=== PATIENT | male | born 1980 | race Caucasian/White ===

== ENCOUNTER 2025-06-03 13:52 | Inpatient (IN) | payer OTHER ==
[~2025-06-03] VITALS: Ht 185.4 cm; Wt 91.4 kg
[2025-06-03] MEDS ORDERED: 0.9% SODIUM CHLORIDE 10 ML SYRINGE IVP PRN (15:30)
[2025-06-03] MEDS: CefTRIAXone 1 GM/DEXTROSE 50 ML IV ONE (16:23)
[2025-06-03 16:27] LABS: PLATELET COUNT (AUTO) 114 K/uL (150-450); RED BLOOD CELL COUNT(AUTO) 4.25 MIL/uL (4.50-5.90); RED CELL DISTRIBUTION WIDTH 14.4 % (11.5-14.5); WHITE BLOOD COUNT (AUTO) 12.9 K/uL (4.5-11.0)
[2025-06-03] MEDS: VANCOMYCIN 1.75GM/WATER(PEG) 350 ML IV ONE (16:28)
[2025-06-03] MEDS: SODIUM CHLORIDE 0.9% 2,450 ML IV ONE (16:28)
[2025-06-03 16:30] LABS: CALCIUM, TOTAL 8.7 mg/dL (8.8-10.5); CREATININE 0.77 mg/dL (0.60-1.30); GLOMERULAR FILTR. RATE CALC > 60 mL/min (>60); GLUCOSE,RANDOM 343 mg/dL (70-110); SODIUM SERUM 132 mmol/L (136-145); UREA NITROGEN, BLOOD 19 mg/dL (7-18)
[2025-06-03] MEDS ORDERED: ACETAMINOPHEN 325 MG TABLET PO PRN (16:30)
[2025-06-03] MEDS ORDERED: MAGNESIUM HYDROXIDE SUSPENSION 30 ML UDCUP PO PRN (16:30)
[2025-06-03] MEDS ORDERED: DEXTROSE 50%-WATER 25 GM/50 ML SYRINGE IVP PRN (16:30)
[2025-06-03] MEDS ORDERED: ONDANSETRON HCL 4 MG/2 ML VIAL IVP PRN (16:30)
[2025-06-03 16:37] LABS: ASPARTATE AMINOTRANSFERASE 39 U/L (15-37); CREATINE KINASE, TOTAL ONLY 103 U/L (39-308); TOTAL PROTEIN, SERUM 7.0 g/dL (6.4-8.2)
[2025-06-03 16:40] LABS: ERYTHROCYTE SEDIMENTATION RATE 67 MM/HR (0-15)
[2025-06-03 16:43] LABS: LACTIC ACID 2.8 mmol/L (0.4-2.0)
[2025-06-03 16:52] LABS: C-REACTIVE PROTEIN QUANT 30.24 mg/dL (0.00-0.30)
[2025-06-03] MEDS ORDERED: IOHEXOL 350 MG/ML 100 ML VIAL ONE (17:06)
[2025-06-03] MEDS ORDERED: SODIUM CHLORIDE 0.9% 100 ML ONE (17:06)
[2025-06-03] MEDS ORDERED: SULF-261 PO (17:19)
[2025-06-03] MEDS ORDERED: TRI2515C TP (17:19)
[2025-06-03] MEDS ORDERED: METF-81 PO (17:19)
[2025-06-03] MEDS ORDERED: CETI10TA77 PO (17:19)
[2025-06-03] MEDS ORDERED: MONT-35 PO (17:19)
[2025-06-03] MEDS ORDERED: INSREG SQ (17:19)
[2025-06-03] MEDS ORDERED: EMPA25TA3 PO (17:19)
[2025-06-03] MEDS ORDERED: FAMO20 PO (17:19)
[2025-06-03] MEDS ORDERED: ATOR40TA28 PO (17:19)
[2025-06-03] MEDS ORDERED: INSLAN SQ (17:19)
[2025-06-03] MEDS ORDERED: BUPR1FIL7 SL (17:19)
[2025-06-03] MEDS: SODIUM CHLORIDE 0.9% 1,000 ML IV ONE (18:01)
[2025-06-03 18:31] LABS: APPEARANCE,URINE CLEAR (CLEAR); GLUCOSE, URINE (UA) >=1000 mg/dL (NEGATIVE); LEUKOCYTE ESTERASE ,URINE NEGATIVE (NEGATIVE); NITRATE,URINE NEGATIVE (NEGATIVE); OCCULT BLOOD,URINE NEGATIVE (NEGATIVE); SPECIFIC GRAVITIY, URINE 1.041 (1.003-1.030)
[2025-06-03 18:38] LABS: ALCOHOL, URINE DRUG SCREEN NEGATIVE (NEGATIVE); AMPHET/METH SCREEN,URINE POSITIVE (NEGATIVE); BARBITURATE SCREEN, URINE NEGATIVE (NEGATIVE); CANNABINOID SCREEN,URINE POSITIVE (NEGATIVE); COCAINE SCREEN,URINE NEGATIVE (NEGATIVE); METHADONE SCREEN, URINE NEGATIVE (NEGATIVE)
[2025-06-03 19:13] LABS: PH,URINE DRUG SCREEN 5.5 (5.0-8.0)
[2025-06-03] MEDS: OxyCODONE HCL/ACETAMINOPHEN 5-325 MG TABLET PO PRN ×2 (19:58→23:10)
[2025-06-03] MEDS: DOCUSATE SODIUM 100 MG CAPSULE PO SCH (21:00)
[2025-06-03] MEDS: INSULIN LISPRO 100 UNITS/ML SQ PRN (22:07)
[2025-06-03 23:08] VITALS: BP 170/100; PULSE 114; RESP 20; TEMP 97.5; O2SAT 98
[2025-06-04] MEDS: PIPERACILLIN/TAZO 3.375 GM/D5W 50 ML IV SCH (00:10)
[2025-06-04 00:12] VITALS: BP 159/84; PULSE 100; RESP 20; O2SAT 96
[2025-06-04] MEDS: VANCOMYCIN 1.25 GM/WATER(PEG) 250 ML IV SCH (01:14)
[2025-06-04 04:15] VITALS: BP 142/82; PULSE 93; RESP 20; TEMP 97.6; O2SAT 98
[2025-06-04 06:31] LABS: GLUCOMETER DEV NAME(LOC) 4E.2; GLUCOSE,POINT OF CARE 288 MG/DL (70-110)
[2025-06-04 07:57] LABS: CALCIUM, TOTAL 8.3 mg/dL (8.8-10.5); CREATININE 0.57 mg/dL (0.60-1.30); GLOMERULAR FILTR. RATE CALC > 60 mL/min (>60); GLUCOSE,RANDOM 314 mg/dL (70-110); SODIUM SERUM 133 mmol/L (136-145); UREA NITROGEN, BLOOD 11 mg/dL (7-18)
[2025-06-04 08:00] VITALS: BP 131/86; PULSE 91; RESP 19; TEMP 98.2; O2SAT 100
[2025-06-04] MEDS: FAMOTIDINE 20 MG TABLET PO SCH (08:26)
[2025-06-04] MEDS: INSULIN GLARGINE,HUM.REC.ANLOG 100 UNITS/ML SQ SCH (08:38)
[2025-06-04 18:01] LABS: GLUCOMETER DEV NAME(LOC) 4E.2; GLUCOSE,POINT OF CARE 338 MG/DL (70-110)
[2025-06-04 18:01] LABS: GLUCOMETER DEV NAME(LOC) 4E.2; GLUCOSE,POINT OF CARE 330 MG/DL (70-110)
[2025-06-04 20:27] VITALS: BP 151/80; PULSE 105; RESP 18; TEMP 100.8; O2SAT 95
[2025-06-04 20:35] LABS: GLUCOMETER DEV NAME(LOC) 6S.2; GLUCOSE,POINT OF CARE 311 MG/DL (70-110)
[2025-06-04] MEDS: KETOROLAC TROMETHAMINE 30 MG/ML VIAL IVP ONE (21:56)
[2025-06-05 00:02] LABS: GLUCOMETER DEV NAME(LOC) 6S.2; GLUCOSE,POINT OF CARE 316 MG/DL (70-110)
[2025-06-05 00:23] VITALS: BP 134/77; PULSE 97; RESP 18; TEMP 98.8; O2SAT 97
[2025-06-05 06:31] VITALS: BP 139/79; PULSE 83; RESP 18; TEMP 98.2; O2SAT 97
[2025-06-05 06:35] LABS: GLUCOMETER DEV NAME(LOC) 6S.2; GLUCOSE,POINT OF CARE 243 MG/DL (70-110)
[2025-06-05 07:46] VITALS: BP 150/84; PULSE 90; RESP 18; TEMP 99; O2SAT 100
[2025-06-05 12:00] LABS: GLUCOMETER DEV NAME(LOC) 4E.2; GLUCOSE,POINT OF CARE 215 MG/DL (70-110)
[2025-06-05] MEDS: SODIUM CHLORIDE 0.45% 1,000 ML IV SCH (12:52)
[2025-06-05 16:26] VITALS: BP 154/91; PULSE 75; RESP 18; TEMP 98.3; O2SAT 100
[2025-06-05 19:39] VITALS: BP 156/85; PULSE 90; RESP 18; TEMP 99.9; O2SAT 95
[2025-06-05 20:11] LABS: GLUCOMETER DEV NAME(LOC) 6S.2; GLUCOSE,POINT OF CARE 211 MG/DL (70-110)
[2025-06-05 20:11] LABS: GLUCOMETER DEV NAME(LOC) 4E.2; GLUCOSE,POINT OF CARE 308 MG/DL (70-110)
[2025-06-05 20:11] LABS: GLUCOMETER DEV NAME(LOC) 6S.2; GLUCOSE,POINT OF CARE 196 MG/DL (70-110)
[2025-06-05 20:11] LABS: GLUCOMETER DEV NAME(LOC) 6S.2; GLUCOSE,POINT OF CARE 276 MG/DL (70-110)
[2025-06-06 05:11] VITALS: BP 142/85; PULSE 89; RESP 18; TEMP 99.3; O2SAT 94
[2025-06-06 07:45] LABS: GLUCOMETER DEV NAME(LOC) 4E.2; GLUCOSE,POINT OF CARE 345 MG/DL (70-110)
[2025-06-06 08:51] VITALS: BP 138/74; PULSE 88; RESP 20; TEMP 98.6; O2SAT 94
[2025-06-06 11:54] LABS: CALCIUM, TOTAL 7.3 mg/dL (8.8-10.5); CREATININE 0.71 mg/dL (0.60-1.30); GLOMERULAR FILTR. RATE CALC > 60 mL/min (>60); GLUCOSE,RANDOM 291 mg/dL (70-110); SODIUM SERUM 131 mmol/L (136-145); UREA NITROGEN, BLOOD 9 mg/dL (7-18)
[2025-06-06 17:12] VITALS: BP 135/91; PULSE 81; RESP 18; TEMP 97.7; O2SAT 95
[2025-06-06 19:31] VITALS: BP 141/89; PULSE 86; RESP 18; TEMP 99.5; O2SAT 94
[2025-06-06 19:56] LABS: GLUCOMETER DEV NAME(LOC) 4E.2; GLUCOSE,POINT OF CARE 290 MG/DL (70-110)
[2025-06-06 19:56] LABS: GLUCOMETER DEV NAME(LOC) 4E.2; GLUCOSE,POINT OF CARE 351 MG/DL (70-110)
[2025-06-06 19:56] LABS: GLUCOMETER DEV NAME(LOC) 4E.2; GLUCOSE,POINT OF CARE 288 MG/DL (70-110)
[2025-06-06] MEDS: ZOLPIDEM TARTRATE 5 MG TABLET PO PRN (21:20)
[2025-06-06 22:11] LABS: GLUCOMETER DEV NAME(LOC) 4E.2; GLUCOSE,POINT OF CARE 285 MG/DL (70-110)
[2025-06-07 04:27] VITALS: BP 146/85; PULSE 97; RESP 18; TEMP 100.3; O2SAT 95
[2025-06-07 08:41] VITALS: BP 146/86; PULSE 94; RESP 18; TEMP 98.4; O2SAT 95
[2025-06-07] MEDS: INSULIN GLARGINE,HUM.REC.ANLOG 100 UNITS/ML SQ SCH (09:19)
[2025-06-07 12:00] LABS: GLUCOMETER DEV NAME(LOC) 6S.2; GLUCOSE,POINT OF CARE 306 MG/DL (70-110)
[2025-06-07 12:01] LABS: GLUCOMETER DEV NAME(LOC) 6S.2; GLUCOSE,POINT OF CARE 322 MG/DL (70-110)
[2025-06-07 12:11] LABS: GLUCOMETER DEV NAME(LOC) 4E.2; GLUCOSE,POINT OF CARE 232 MG/DL (70-110)
[2025-06-07 13:58] LABS: PLATELET COUNT (AUTO) 129 K/uL (150-450); RED BLOOD CELL COUNT(AUTO) 3.94 MIL/uL (4.50-5.90); RED CELL DISTRIBUTION WIDTH 15.0 % (11.5-14.5); WHITE BLOOD COUNT (AUTO) 14.7 K/uL (4.5-11.0)
[2025-06-07 14:26] LABS: CALCIUM, TOTAL 7.7 mg/dL (8.8-10.5); CREATININE 0.50 mg/dL (0.60-1.30); GLOMERULAR FILTR. RATE CALC > 60 mL/min (>60); GLUCOSE,RANDOM 344 mg/dL (70-110); SODIUM SERUM 128 mmol/L (136-145); UREA NITROGEN, BLOOD 10 mg/dL (7-18)
[2025-06-07 18:41] LABS: GLUCOMETER DEV NAME(LOC) 6S.2; GLUCOSE,POINT OF CARE 309 MG/DL (70-110)
[2025-06-07 20:56] LABS: GLUCOMETER DEV NAME(LOC) 4E.2; GLUCOSE,POINT OF CARE 326 MG/DL (70-110)
[2025-06-07 20:58] VITALS: BP 153/93; PULSE 93; RESP 17; TEMP 99.1; O2SAT 95
[2025-06-07] MEDS ORDERED: SODIUM CHLORIDE 0.9% 250 ML IV ONE (21:21)
[2025-06-07] MEDS: VANCOMYCIN 1.75GM/WATER(PEG) 350 ML IV SCH (23:46)
[2025-06-08 04:50] VITALS: BP 156/91; PULSE 95; RESP 18; TEMP 100.8; O2SAT 95
[2025-06-08] MEDS ORDERED: RINGERS SOLUTION,LACTATED 1,000 ML IV ONE (05:54)
[2025-06-08 08:00] VITALS: BP 139/79; PULSE 91; RESP 18; TEMP 99.7; O2SAT 99
[2025-06-08 11:55] LABS: GLUCOMETER DEV NAME(LOC) 6S.2; GLUCOSE,POINT OF CARE 283 MG/DL (70-110)
[2025-06-08 11:55] LABS: GLUCOMETER DEV NAME(LOC) 6S.2; GLUCOSE,POINT OF CARE 249 MG/DL (70-110)
[2025-06-08] MEDS ORDERED: FentaNYL CITRATE PF 100 MCG/2 ML VIAL ONE (12:00)
[2025-06-08] MEDS ORDERED: MIDAZOLAM HCL 2 MG/2 ML VIAL ONE (12:00)
[2025-06-08] MEDS ORDERED: BACITRACIN 28 GM OINTMENT TP ONE (12:15)
[2025-06-08] MEDS ORDERED: MUPIROCIN CALCIUM 2% 22 GM OINTMENT ONE (12:17)
[2025-06-08] MEDS: ETHYL ALCOHOL 62% ANTISEPTIC NASAL SANITIZER 0.6 ML AMPUL NASAL ONE (12:34)
[2025-06-08] MEDS: CHLORHEXIDINE GLUCONATE 2% TOWELETTE [2'S/6'S] TP ONE (12:35)
[2025-06-08] MEDS: RINGERS SOLUTION,LACTATED 1,000 ML IV ONE (12:37)
[2025-06-08] MEDS ORDERED: BUPIVACAINE HCL/PF 0.25% 30 ML VIAL ONE (12:54)
[2025-06-08 12:55] LABS: GLUCOMETER DEV NAME(LOC) SDS.; GLUCOSE,POINT OF CARE 215 MG/DL (70-110)
[2025-06-08] MEDS ORDERED: BUPIVACAINE LIPOSOME/PF 1.3%-13.3MG/ML SUSP 20 ML VIAL INJ ONE (13:00)
[2025-06-08] MEDS ORDERED: FentaNYL CITRATE PF 100 MCG/2 ML VIAL IV ONE (13:32)
[2025-06-08] MEDS ORDERED: MIDAZOLAM HCL 2 MG/2 ML VIAL IVP ONE (13:32)
[2025-06-08 13:56] LABS: GLUCOMETER DEV NAME(LOC) 4E.2; GLUCOSE,POINT OF CARE 218 MG/DL (70-110)
[2025-06-08 17:10] VITALS: BP 176/94; PULSE 70; RESP 20; TEMP 97.5; O2SAT 99
[2025-06-08 17:50] VITALS: BP 185/93; PULSE 75; RESP 20; TEMP 97.7; O2SAT 98
[2025-06-08 21:00] VITALS: BP 159/91; PULSE 73; RESP 20; TEMP 97.5; O2SAT 98
[2025-06-08 23:11] LABS: GLUCOMETER DEV NAME(LOC) 6S.2; GLUCOSE,POINT OF CARE 371 MG/DL (70-110)
[2025-06-08 23:11] LABS: GLUCOMETER DEV NAME(LOC) 6S.2; GLUCOSE,POINT OF CARE 96 MG/DL (70-110)
[2025-06-09 04:00] VITALS: BP 164/93; PULSE 70; RESP 20; TEMP 97.7; O2SAT 99
[2025-06-09] MEDS ORDERED: SODIUM CHLORIDE 0.9% 500 ML IV ONE (05:45)
[2025-06-09 05:46] LABS: GLUCOMETER DEV NAME(LOC) 4E.2; GLUCOSE,POINT OF CARE 361 MG/DL (70-110)
[2025-06-09 06:33] LABS: CALCIUM, TOTAL 8.5 mg/dL (8.8-10.5); CREATININE 0.51 mg/dL (0.60-1.30); GLOMERULAR FILTR. RATE CALC > 60 mL/min (>60); GLUCOSE,RANDOM 392 mg/dL (70-110); SODIUM SERUM 127 mmol/L (136-145); UREA NITROGEN, BLOOD 17 mg/dL (7-18)
[2025-06-09 09:21] VITALS: BP 133/92; PULSE 77; RESP 18; TEMP 97.6; O2SAT 96
[2025-06-09] MEDS ORDERED: ROCURONIUM BROMIDE 10 MG/ML 5 ML VIAL IVP ONE (12:14)
[2025-06-09] MEDS ORDERED: METOCLOPRAMIDE HCL 5 MG/ML 2 ML VIAL IVP ONE (12:14)
[2025-06-09] MEDS ORDERED: DEXAMETHASONE SOD PHOS 4 MG/ML VIAL IVP ONE (12:14)
[2025-06-09] MEDS ORDERED: PROPOFOL 1% ISO-OSM 1000 MG/100 ML BOTTLE IV ONE (12:14)
[2025-06-09] MEDS ORDERED: SUGAMMADEX SODIUM 200 MG/2 ML VIAL IVP ONE (12:14)
[2025-06-09] MEDS ORDERED: ONDANSETRON HCL 4 MG/2 ML VIAL IVP ONE (12:14)
[2025-06-09] MEDS ORDERED: LIDOCAINE/PF 2% 5 ML VIAL IM ONE (12:14)
[2025-06-09] MEDS ORDERED: PROPOFOL 1% 20 ML VIAL IVP ONE (12:14)
[2025-06-09] MEDS: BUPRENORPHINE HCL/NALOXONE HCL 8-2 MG SUBLINGUAL TABLET SL SCH (13:43)
[2025-06-09] MEDS: BUPRENORPHINE HCL/NALOXONE HCL 2-0.5 MG SUBLINGUAL TABLET SL SCH (13:44)
[2025-06-09] MEDS: INSULIN GLARGINE,HUM.REC.ANLOG 100 UNITS/ML SQ ONE (13:45)
[2025-06-09] MEDS: INSULIN LISPRO 100 UNITS/ML SQ PRN (13:51)
[2025-06-09 20:00] VITALS: BP 145/89; PULSE 77; RESP 18; TEMP 97.7; O2SAT 96
[2025-06-09] MEDS: INSULIN GLARGINE,HUM.REC.ANLOG 100 UNITS/ML SQ SCH (21:29)
[2025-06-10 01:01] LABS: GLUCOMETER DEV NAME(LOC) 6S.2; GLUCOSE,POINT OF CARE 462 MG/DL (70-110)
[2025-06-10 01:01] LABS: GLUCOMETER DEV NAME(LOC) 4E.2; GLUCOSE,POINT OF CARE 394 MG/DL (70-110)
[2025-06-10 01:01] LABS: GLUCOMETER DEV NAME(LOC) 4E.2; GLUCOSE,POINT OF CARE 407 MG/DL (70-110)
[2025-06-10 04:00] VITALS: BP 127/78; PULSE 65; RESP 18; TEMP 97.9; O2SAT 97
[2025-06-10] MEDS: INSULIN GLARGINE,HUM.REC.ANLOG 100 UNITS/ML SQ SCH (08:48)
[2025-06-10 10:06] LABS: GLUCOMETER DEV NAME(LOC) 4E.2; GLUCOSE,POINT OF CARE 389 MG/DL (70-110)
[2025-06-10 12:01] LABS: GLUCOMETER DEV NAME(LOC) 6S.2; GLUCOSE,POINT OF CARE 351 MG/DL (70-110)
[2025-06-10 20:36] VITALS: BP 129/80; PULSE 71; RESP 18; TEMP 97.9; O2SAT 95
[2025-06-11 02:41] LABS: GLUCOMETER DEV NAME(LOC) 4E.2; GLUCOSE,POINT OF CARE 349 MG/DL (70-110)
[2025-06-11 02:41] LABS: GLUCOMETER DEV NAME(LOC) 4E.2; GLUCOSE,POINT OF CARE 275 MG/DL (70-110)
[2025-06-11 04:23] VITALS: BP 130/78; PULSE 77; RESP 18; TEMP 98.2; O2SAT 96
[2025-06-11 08:00] VITALS: BP 122/87; PULSE 88; RESP 19; TEMP 98.1; O2SAT 95
[2025-06-11 08:00] LABS: CALCIUM, TOTAL 7.9 mg/dL (8.8-10.5); CREATININE 0.68 mg/dL (0.60-1.30); GLOMERULAR FILTR. RATE CALC > 60 mL/min (>60); GLUCOSE,RANDOM 255 mg/dL (70-110); SODIUM SERUM 133 mmol/L (136-145); UREA NITROGEN, BLOOD 17 mg/dL (7-18)
[2025-06-11] MEDS ORDERED: RINGERS SOLUTION,LACTATED 1,000 ML IV ONE ×2 (09:00→14:54)
[2025-06-11] MEDS: CHLORHEXIDINE GLUCONATE 2% TOWELETTE [2'S/6'S] TP ONE (10:10)
[2025-06-11] MEDS: ETHYL ALCOHOL 62% ANTISEPTIC NASAL SANITIZER 0.6 ML AMPUL NASAL ONE (10:10)
[2025-06-11] MEDS ORDERED: MIDAZOLAM HCL 2 MG/2 ML VIAL ONE (12:00)
[2025-06-11] MEDS ORDERED: FentaNYL CITRATE PF 100 MCG/2 ML VIAL ONE (12:00)
[2025-06-11 12:06] LABS: GLUCOMETER DEV NAME(LOC) 4E.2; GLUCOSE,POINT OF CARE 275 MG/DL (70-110)
[2025-06-11 12:06] LABS: GLUCOMETER DEV NAME(LOC) 4E.2; GLUCOSE,POINT OF CARE 141 MG/DL (70-110)
[2025-06-11] MEDS: RINGERS SOLUTION,LACTATED 1,000 ML IV ONE (12:18)
[2025-06-11] MEDS ORDERED: BUPIVACAINE HCL/PF 0.25% 30 ML VIAL ONE (12:32)
[2025-06-11] MEDS ORDERED: MIDAZOLAM HCL 2 MG/2 ML VIAL IVP ONE (13:46)
[2025-06-11] MEDS ORDERED: FentaNYL CITRATE PF 100 MCG/2 ML VIAL IM ONE (13:46)
[2025-06-11] MEDS ORDERED: SODIUM CHLORIDE 0.9% 10 ML ONE (14:29)
[2025-06-11] MEDS ORDERED: SODIUM CHLORIDE 0.9% 50 ML ONE (14:30)
[2025-06-11] MEDS: BUPIVACAINE LIPOSOME/PF 1.3%-13.3MG/ML SUSP 20 ML VIAL INJ ONE (15:00)
[2025-06-11 16:30] VITALS: BP 139/87; PULSE 97; RESP 20; TEMP 97.9; O2SAT 95
[2025-06-11 16:45] LABS: GLUCOMETER DEV NAME(LOC) 4E.2; GLUCOSE,POINT OF CARE 147 MG/DL (70-110)
[2025-06-11] MEDS: VANCOMYCIN 1.5 GM/WATER(PEG) 300 ML IV SCH (16:47)
[2025-06-11] MEDS ORDERED: METOCLOPRAMIDE HCL 5 MG/ML 2 ML VIAL ONE (17:58)
[2025-06-11] MEDS ORDERED: ROCURONIUM BROMIDE 10 MG/ML 5 ML VIAL ONE (17:58)
[2025-06-11] MEDS ORDERED: SUCCINYLCHOLINE CHLORIDE 20 MG/ML 10 ML VIAL ONE (17:58)
[2025-06-11] MEDS ORDERED: ONDANSETRON HCL 4 MG/2 ML VIAL ONE (17:58)
[2025-06-11 21:06] VITALS: BP 140/85; PULSE 103; RESP 18; TEMP 98.6; O2SAT 96
[2025-06-12 02:36] LABS: GLUCOMETER DEV NAME(LOC) 4E.2; GLUCOSE,POINT OF CARE 348 MG/DL (70-110)
[2025-06-12 06:01] VITALS: BP 121/80; PULSE 88; RESP 20; TEMP 97.9; O2SAT 96
[2025-06-12 06:13] LABS: CALCIUM, TOTAL 8.1 mg/dL (8.8-10.5); CREATININE 0.57 mg/dL (0.60-1.30); GLOMERULAR FILTR. RATE CALC > 60 mL/min (>60); GLUCOSE,RANDOM 269 mg/dL (70-110); SODIUM SERUM 130 mmol/L (136-145); UREA NITROGEN, BLOOD 14 mg/dL (7-18)
[2025-06-12 08:32] VITALS: BP 107/61; PULSE 96; RESP 18; TEMP 98.1; O2SAT 97
[2025-06-12] MEDS: INSULIN LISPRO 100 UNITS/ML SQ SCH (11:35)
[2025-06-12] MEDS: MetFORMIN HCL 500 MG ER TABLET PO SCH (18:42)
[2025-06-12 20:00] VITALS: BP 131/79; PULSE 91; RESP 20; TEMP 98.4; O2SAT 96
[2025-06-12] MEDS: ATORVASTATIN CALCIUM 40 MG TABLET PO SCH (20:54)
[2025-06-13 03:24] VITALS: BP 110/68; PULSE 93; RESP 18; TEMP 98.4; O2SAT 96
[2025-06-13] MEDS: CETIRIZINE HCL 10 MG TABLET PO SCH (07:37)
[2025-06-13] MEDS: EMPAGLIFLOZIN 25 MG TABLET PO SCH (07:38)
[2025-06-13] MEDS: MONTELUKAST SODIUM 10 MG TABLET PO SCH (07:40)
[2025-06-13] MEDS: FAMOTIDINE 20 MG TABLET PO SCH (07:50)
[2025-06-13 08:09] LABS: CALCIUM, TOTAL 7.9 mg/dL (8.8-10.5); CREATININE 0.45 mg/dL (0.60-1.30); GLOMERULAR FILTR. RATE CALC > 60 mL/min (>60); GLUCOSE,RANDOM 199 mg/dL (70-110); SODIUM SERUM 133 mmol/L (136-145); UREA NITROGEN, BLOOD 13 mg/dL (7-18)
[2025-06-13] MEDS: INSULIN GLARGINE,HUM.REC.ANLOG 100 UNITS/ML SQ SCH (08:51)
[2025-06-13 08:56] VITALS: BP 111/66; PULSE 93; RESP 18; TEMP 98.2; O2SAT 96
[2025-06-13] MEDS ORDERED: CALC625T66 PO (10:37)
[2025-06-13] MEDS ORDERED: HYDR-4808 PO (10:37)
[2025-06-13] MEDS ORDERED: IBUP-1506 PO (10:37)
[2025-06-13] MEDS ORDERED: LANO113C6 TP (10:37)
[2025-06-13] MEDS ORDERED: DEXT2TAB3 PO (10:37)
[2025-06-13 14:20] LABS: ASPARTATE AMINOTRANSFERASE 57.0 U/L (15-37); TOTAL PROTEIN, SERUM 6.5 g/dL (6.4-8.2)
[2025-06-13 16:09] LABS: PLATELET COUNT (AUTO) 368 K/uL (150-450); RED BLOOD CELL COUNT(AUTO) 3.37 MIL/uL (4.50-5.90); RED CELL DISTRIBUTION WIDTH 15.8 % (11.5-14.5); WHITE BLOOD COUNT (AUTO) 10.9 K/uL (4.5-11.0)
[2025-06-13 17:50] LABS: GLUCOMETER DEV NAME(LOC) 6S.2; GLUCOSE,POINT OF CARE 195 MG/DL (70-110)
[2025-06-13 17:50] LABS: GLUCOMETER DEV NAME(LOC) 6S.2; GLUCOSE,POINT OF CARE 210 MG/DL (70-110)
[2025-06-13 19:45] LABS: GLUCOMETER DEV NAME(LOC) 4E.2; GLUCOSE,POINT OF CARE 269 MG/DL (70-110)
[2025-06-13 19:46] LABS: GLUCOMETER DEV NAME(LOC) 4E.2; GLUCOSE,POINT OF CARE 308 MG/DL (70-110)
[2025-06-13 19:46] LABS: GLUCOMETER DEV NAME(LOC) 4E.2; GLUCOSE,POINT OF CARE 201 MG/DL (70-110)
[2025-06-13 19:46] LABS: GLUCOMETER DEV NAME(LOC) 6S.2; GLUCOSE,POINT OF CARE 136 MG/DL (70-110)
[2025-06-13 19:46] LABS: GLUCOMETER DEV NAME(LOC) 4E.2; GLUCOSE,POINT OF CARE 124 MG/DL (70-110)
[2025-06-13 20:07] VITALS: BP 133/84; PULSE 89; RESP 20; TEMP 98.1; O2SAT 96
[2025-06-14 04:00] VITALS: BP 106/65; PULSE 92; RESP 18; TEMP 98.1; O2SAT 95
[2025-06-14 07:14] LABS: CALCIUM, TOTAL 8.2 mg/dL (8.8-10.5); CREATININE 0.66 mg/dL (0.60-1.30); GLOMERULAR FILTR. RATE CALC > 60 mL/min (>60); GLUCOSE,RANDOM 143 mg/dL (70-110); SODIUM SERUM 136 mmol/L (136-145); UREA NITROGEN, BLOOD 15 mg/dL (7-18)
[2025-06-14] MEDS ORDERED: SODIUM CHLORIDE 0.9% 250 ML IV ONE (08:37)
[2025-06-14 08:51] LABS: GLUCOMETER DEV NAME(LOC) 4E.2; GLUCOSE,POINT OF CARE 127 MG/DL (70-110)
[2025-06-14 08:51] LABS: GLUCOMETER DEV NAME(LOC) 6S.2; GLUCOSE,POINT OF CARE 158 MG/DL (70-110)
[2025-06-14 09:14] VITALS: BP 112/64; PULSE 80; RESP 18; TEMP 98.1; O2SAT 100
[2025-06-14 13:51] LABS: GLUCOMETER DEV NAME(LOC) 4E.2; GLUCOSE,POINT OF CARE 116 MG/DL (70-110)
[2025-06-14] MEDS: VANCOMYCIN 1GM/WATER(PEG/NADA) 200 ML IV SCH (15:40)
[2025-06-14 20:00] VITALS: BP 116/72; PULSE 85; RESP 18; TEMP 98.2; O2SAT 97
[2025-06-14 21:50] LABS: GLUCOMETER DEV NAME(LOC) 6S.2; GLUCOSE,POINT OF CARE 132 MG/DL (70-110)
[2025-06-15 04:00] VITALS: BP 109/64; PULSE 73; RESP 18; TEMP 98.1; O2SAT 97
[2025-06-15 06:30] LABS: GLUCOMETER DEV NAME(LOC) 6S.2; GLUCOSE,POINT OF CARE 138 MG/DL (70-110)
[2025-06-15 06:38] LABS: CALCIUM, TOTAL 8.2 mg/dL (8.8-10.5); CREATININE 0.54 mg/dL (0.60-1.30); GLOMERULAR FILTR. RATE CALC > 60 mL/min (>60); GLUCOSE,RANDOM 143 mg/dL (70-110); SODIUM SERUM 137 mmol/L (136-145); UREA NITROGEN, BLOOD 15 mg/dL (7-18)
[2025-06-15 07:30] LABS: GLUCOMETER DEV NAME(LOC) 4E.2; GLUCOSE,POINT OF CARE 98 MG/DL (70-110)
[2025-06-15 08:42] VITALS: BP 116/63; PULSE 88; RESP 18; TEMP 98.2; O2SAT 96
[2025-06-15 10:38] LABS: PLATELET COUNT (AUTO) 371 K/uL (150-450); RED BLOOD CELL COUNT(AUTO) 3.47 MIL/uL (4.50-5.90); RED CELL DISTRIBUTION WIDTH 16.0 % (11.5-14.5); WHITE BLOOD COUNT (AUTO) 6.0 K/uL (4.5-11.0)
[2025-06-15 12:20] LABS: GLUCOMETER DEV NAME(LOC) 6S.2; GLUCOSE,POINT OF CARE 144 MG/DL (70-110)
[2025-06-15 20:00] VITALS: BP 112/72; PULSE 94; RESP 18; TEMP 98.2; O2SAT 98
[2025-06-15 21:16] LABS: GLUCOMETER DEV NAME(LOC) 4E.2; GLUCOSE,POINT OF CARE 113 MG/DL (70-110)
[2025-06-15 21:26] LABS: GLUCOMETER DEV NAME(LOC) 6S.2; GLUCOSE,POINT OF CARE 130 MG/DL (70-110)
[2025-06-16 04:00] VITALS: BP 102/63; PULSE 74; RESP 18; TEMP 98.2; O2SAT 97
[2025-06-16 05:41] LABS: GLUCOMETER DEV NAME(LOC) 6S.2; GLUCOSE,POINT OF CARE 140 MG/DL (70-110)
[2025-06-16 08:30] VITALS: BP 107/61; PULSE 91; RESP 19; TEMP 98.1; O2SAT 99
[2025-06-16 09:06] LABS: CALCIUM, TOTAL 8.4 mg/dL (8.8-10.5); CREATININE 0.68 mg/dL (0.60-1.30); GLOMERULAR FILTR. RATE CALC > 60 mL/min (>60); GLUCOSE,RANDOM 141 mg/dL (70-110); SODIUM SERUM 136 mmol/L (136-145); UREA NITROGEN, BLOOD 15 mg/dL (7-18)
[2025-06-16] MEDS ORDERED: SODIUM CHLORIDE 0.9% 500 ML IV ONE (11:18)
[2025-06-16 20:00] VITALS: BP 123/79; PULSE 84; RESP 18; TEMP 98.1; O2SAT 95
[2025-06-16] MEDS: VANCOMYCIN 1.25 GM/WATER(PEG) 250 ML IV SCH (20:35)
[2025-06-17 03:31] LABS: GLUCOMETER DEV NAME(LOC) 4E.2; GLUCOSE,POINT OF CARE 132 MG/DL (70-110)
[2025-06-17 04:00] VITALS: BP 100/60; PULSE 80; RESP 18; TEMP 98.1; O2SAT 98
[2025-06-17 06:16] LABS: GLUCOMETER DEV NAME(LOC) 6S.2; GLUCOSE,POINT OF CARE 168 MG/DL (70-110)
[2025-06-17 06:16] LABS: GLUCOMETER DEV NAME(LOC) 6S.2; GLUCOSE,POINT OF CARE 128 MG/DL (70-110)
[2025-06-17 06:16] LABS: GLUCOMETER DEV NAME(LOC) 6S.2; GLUCOSE,POINT OF CARE 89 MG/DL (70-110)
[2025-06-17 08:29] VITALS: BP 103/59; PULSE 79; RESP 18; TEMP 97.8; O2SAT 98
[2025-06-17 08:40] LABS: GLUCOMETER DEV NAME(LOC) 6S.2; GLUCOSE,POINT OF CARE 145 MG/DL (70-110)
[2025-06-17 11:21] LABS: GLUCOMETER DEV NAME(LOC) 6S.2; GLUCOSE,POINT OF CARE 141 MG/DL (70-110)
[2025-06-17 17:31] LABS: GLUCOMETER DEV NAME(LOC) 6S.2; GLUCOSE,POINT OF CARE 87 MG/DL (70-110)
[2025-06-17 20:05] VITALS: BP 103/63; PULSE 79; RESP 18; TEMP 98.2; O2SAT 97
[2025-06-17 21:36] LABS: GLUCOMETER DEV NAME(LOC) 6S.2; GLUCOSE,POINT OF CARE 153 MG/DL (70-110)
[2025-06-18 04:58] VITALS: BP 101/61; PULSE 78; RESP 18; TEMP 98.8; O2SAT 96
[2025-06-18 08:00] VITALS: BP 112/66; PULSE 64; RESP 19; TEMP 98.2; O2SAT 97
[2025-06-18 14:41] LABS: GLUCOMETER DEV NAME(LOC) 6N.2C; GLUCOSE,POINT OF CARE 104 MG/DL (70-110)
[2025-06-18 17:06] LABS: GLUCOMETER DEV NAME(LOC) 6S.2; GLUCOSE,POINT OF CARE 174 MG/DL (70-110)
[2025-06-18 19:57] VITALS: BP 108/67; PULSE 82; RESP 18; TEMP 98.4; O2SAT 98
[2025-06-19 04:08] VITALS: BP 97/58; PULSE 76; RESP 17; TEMP 98.1; O2SAT 99
[2025-06-19 07:56] LABS: GLUCOMETER DEV NAME(LOC) 6N.1C; GLUCOSE,POINT OF CARE 99 MG/DL (70-110)
[2025-06-19 07:56] LABS: GLUCOMETER DEV NAME(LOC) 6N.2C; GLUCOSE,POINT OF CARE 212 MG/DL (70-110)
[2025-06-19 07:56] LABS: GLUCOMETER DEV NAME(LOC) 6N.2C; GLUCOSE,POINT OF CARE 107 MG/DL (70-110)
[2025-06-19 08:36] VITALS: BP 105/56; PULSE 72; RESP 18; TEMP 97.9; O2SAT 100
[2025-06-19] MEDS ORDERED: SODIUM CHLORIDE 0.9% 250 ML IV ONE (09:19)
[2025-06-19 10:01] LABS: GLUCOMETER DEV NAME(LOC) 6N.2C; GLUCOSE,POINT OF CARE 140 MG/DL (70-110)
[2025-06-19 10:38] LABS: CALCIUM, TOTAL 8.1 mg/dL (8.8-10.5); CREATININE 0.58 mg/dL (0.60-1.30); GLOMERULAR FILTR. RATE CALC > 60 mL/min (>60); GLUCOSE,RANDOM 221 mg/dL (70-110); SODIUM SERUM 138 mmol/L (136-145); UREA NITROGEN, BLOOD 13 mg/dL (7-18)
[2025-06-19 13:20] LABS: GLUCOMETER DEV NAME(LOC) 6N.1C; GLUCOSE,POINT OF CARE 162 MG/DL (70-110)
[2025-06-19 18:05] LABS: GLUCOMETER DEV NAME(LOC) 6N.2C; GLUCOSE,POINT OF CARE 112 MG/DL (70-110)
[2025-06-19 20:07] VITALS: BP 124/82; PULSE 64; RESP 18; TEMP 98.1; O2SAT 100
[2025-06-20 04:20] VITALS: BP 110/60; PULSE 74; RESP 18; TEMP 98.1; O2SAT 96
[2025-06-20 07:36] LABS: GLUCOMETER DEV NAME(LOC) 6N.2C; GLUCOSE,POINT OF CARE 121 MG/DL (70-110)
[2025-06-20 08:31] VITALS: BP 101/61; PULSE 74; RESP 20; TEMP 98.2; O2SAT 96
[2025-06-20 12:20] LABS: GLUCOMETER DEV NAME(LOC) 6N.2C; GLUCOSE,POINT OF CARE 139 MG/DL (70-110)
[2025-06-20 19:41] LABS: GLUCOMETER DEV NAME(LOC) 6N.2C; GLUCOSE,POINT OF CARE 143 MG/DL (70-110)
[2025-06-20 19:41] LABS: GLUCOMETER DEV NAME(LOC) 6N.2C; GLUCOSE,POINT OF CARE 116 MG/DL (70-110)
[2025-06-20 19:54] VITALS: BP 100/61; PULSE 69; RESP 17; TEMP 98.1; O2SAT 97
[2025-06-21 02:11] LABS: GLUCOMETER DEV NAME(LOC) 6N.1C; GLUCOSE,POINT OF CARE 146 MG/DL (70-110)
[2025-06-21 05:56] VITALS: BP 120/65; PULSE 79; RESP 18; TEMP 98.1; O2SAT 96
[2025-06-21 07:20] LABS: CALCIUM, TOTAL 8.4 mg/dL (8.8-10.5); CREATININE 0.62 mg/dL (0.60-1.30); GLOMERULAR FILTR. RATE CALC > 60 mL/min (>60); GLUCOSE,RANDOM 78 mg/dL (70-110); SODIUM SERUM 142 mmol/L (136-145); UREA NITROGEN, BLOOD 14 mg/dL (7-18)
[2025-06-21 08:27] VITALS: BP 100/55; PULSE 74; RESP 20; TEMP 98.6; O2SAT 100
[2025-06-21 08:43] VITALS: BP 103/59; PULSE 73; RESP 20; O2SAT 96
[2025-06-21] MEDS ORDERED: DOCU-385 PO (10:17)
[2025-06-21] MEDS ORDERED: INSLAN SQ (10:19)
[2025-06-21] MEDS ORDERED: ACET-2247 PO (10:21)
[2025-06-21] MEDS ORDERED: INSU100V SQ (10:22)
[2025-06-21] MEDS ORDERED: MAGN-169 PO (10:34)
[2025-06-21] MEDS ORDERED: BUPR1TAB33 SL (10:37)
[2025-06-21] MEDS ORDERED: BUPR1TAB32 SL (10:38)
[2025-06-21 12:10] LABS: GLUCOMETER DEV NAME(LOC) 6N.2C; GLUCOSE,POINT OF CARE 78 MG/DL (70-110)
[2025-06-21 20:01] LABS: GLUCOMETER DEV NAME(LOC) 6N.1C; GLUCOSE,POINT OF CARE 100 MG/DL (70-110)
[2025-06-21 20:01] LABS: GLUCOMETER DEV NAME(LOC) 6N.1C; GLUCOSE,POINT OF CARE 168 MG/DL (70-110)
== END 2025-06-21 21:34 | DRG 571 ==
LOC: EMS 14:03 → EDH 16:20 → CMPBEDREQ 21:03 → 6S 22:25
PROVIDERS: ADMIT Internal Medicine; ATTEND Internal Medicine
PROC: 0KN90ZZ Release Right Lower Arm and Wrist Muscle, Open Approach (ICD-10-PCS; 2025-06-08)
PROC: 0JBG0ZZ Excision of Right Lower Arm Subcutaneous Tissue and Fascia, Open Approach (ICD-10-PCS; 2025-06-08)
PROC: 01N50ZZ Release Median Nerve, Open Approach (ICD-10-PCS; principal; 2025-06-08 13:00)
PROC: 05HY33Z Insertion of Infusion Device into Upper Vein, Percutaneous Approach (ICD-10-PCS; 2025-06-10)
PROC: B54NZZA Ultrasonography of Left Upper Extremity Veins, Guidance (ICD-10-PCS; 2025-06-10)
PROC: 0KB70ZZ Excision of Right Upper Arm Muscle, Open Approach (ICD-10-PCS; 2025-06-12)
DX: L03.113 Cellulitis of right upper limb (principal); E87.1 Hypo-osmolality and hyponatremia; M60.000 Infective myositis, unspecified right arm; R65.10 Systemic inflammatory response syndrome (SIRS) of non-infectious origin without acute organ dysfunction; G56.01 Carpal tunnel syndrome, right upper limb; F19.10 Other psychoactive substance abuse, uncomplicated; E11.65 Type 2 diabetes mellitus with hyperglycemia; D69.6 Thrombocytopenia, unspecified; D64.9 Anemia, unspecified; I10 Essential (primary) hypertension; Z79.4 Long term (current) use of insulin; Z83.3 Family history of diabetes mellitus
CPT/HCPCS: 36245; 36569; 73201; 76937; 80048; 80076; 80202; 80307; 81001; 82248; 82550; 82962; 83605; 84145; 85025; 85610; 85651; 85730; 86140; 87040; 87070; 87081; 87205; 93005; 97162; 97166; 97530; 99285; J0330; J0666; J0696; J1100; J1171; J1815; J1885; J2250; J2405; J2543; J2704; J2765; J3010; J3490; J7030; J7040; J7050; J7120; J8540